=== PATIENT | female | born 1995 | race Caucasian/White ===

== ENCOUNTER 2022-05-15 22:27 | Emergency (ER) | payer OTHER, SELFPAY ==
[2022-05-15 22:29] VITALS: BP 129/74; PULSE 70; RESP 16; TEMP 36.6; O2SAT 100
--- NOTE | 2022-05-15 23:05 | ED.EYEPROB ---
HPI - Eye Problem General Chief complaint: Eye Problems Stated complaint: eye complaint Time Seen by Provider: 05/15/22 22:41 Source: patient Mode of arrival: ambulatory Limitations: no limitations History of Present Illness HPI Narrative: Presents c/o matting, redness and itching to RT eye that started earlier today. Reports son dx with conjunctivitis yesterday. Denies change in visual acuity or other sx at this time. Review of Systems Review of Systems: CONSTITUTIONAL: Denies fever, chills, or sweats. EYES: Redness, matting with purulent discharge RT eye. Denies visual changes. ENT: Denies rhinorrhea, congestion, sore throat, or otalgia. CARDIOVASCULAR: Denies chest pain, palpitations, or edema. RESPIRATORY: Denies cough or dyspnea. GASTROINTESTINAL: Denies abdominal pain, nausea, vomiting, or diarrhea. GENITOURINARY: Denies dysuria or hematuria. SKIN: Denies rash or itching. MUSCULOSKELETAL: Denies back pain, joint pain, or myalgia. NEUROLOGIC: Denies headache, numbness, or weakness. PSYCHIATRIC: Denies anxiety or depression. Exam Narrative: GENERAL: Well-appearing, well-nourished, and in no acute distress. HEAD: Normocephalic, atraumatic. EYES: OD injected with scant purulent discharge noted. Slight swelling to upper and lower eyelid. No erythema or tenderness to orbit. PERRLA and EOMI. ENT: Nares clear, no rhinorrhea or epistaxis. Mucous membranes moist. NECK: Supple. CHEST: Clear to auscultation. No respiratory distress. HEART: Regular rate and rhythm. No murmur heard. Normal peripheral pulses. ABDOMEN: Soft, nontender, nondistended, normal active bowel sounds. EXTREMITIES: Normal range of motion. No edema. SKIN: Warm, dry, no rash. NEURO: No focal deficits. Alert and oriented x3. PSYCH: Normal mood and affect. Course Vital Signs Vital signs: Vital Signs Temperature 36.6 C 05/15/22 22:29 Pulse Rate 70 05/15/22 22:29 Respiratory Rate 16 05/15/22 22:29 Blood Pressure 129/74 05/15/22 22:29 Pulse Oximetry 100 05/15/22 22:29 Oxygen Delivery Room Air 05/15/22 22:29 Temperature 36.6 C 05/15/22 22:29 Pulse Rate 70 11/03/22 22:29 Respiratory Rate 16 05/15/22 22:29 Blood Pressure 129/74 05/15/22 22:29 Pulse Oximetry 100 05/15/22 22:29 Oxygen Delivery Room Air 05/15/22 22:29 Discharge Plan Discharge Clinical Impression: Bacterial conjunctivitis Patient Disposition: Home, Self-Care Condition: Stable Instructions: Antibiotic Form Additional Instructions: Keep hands clean. Wash eyelids with bay shampoo two times per day. Medication as directed. Return to the ER for any concerns or problems. Follow-up/Referrals: PHYSICIAN,PATIENT REGISTRATION REPRESENTATIVE [Primary Care Provider] - Time of Disposition: 23:11
[2022-05-15] MEDS: TOBRAMYCIN/DEXAMETHASONE OP 2.5 ML BTL 1 DROP EACH EYE (23:20)
== END 2022-05-15 23:34 | disposition home or self-care (01) ==
LOC: ANHED 23:23
PROVIDERS: Emergency Provider Nurse Practitioner
DX: H10.9 Unspecified conjunctivitis (principal)
CPT/HCPCS: 99281; A9270